=== PATIENT | male | born 1985 | race African-American/Black ===

== ENCOUNTER 2021-10-30 10:17 | Inpatient (IN) | payer OTHER ==
[2021-10-30 10:45] VITALS: BMI 26.9
[2021-10-30] MEDS ORDERED: NALOXONE HCL (KLOXXADO) 8 MG SPRAY NS PRN (11:06)
[2021-10-30] MEDS ORDERED: BISMUTH SUBSALICYLATE 262 MG/15 ML BTL PO PRN (11:06)
[2021-10-30] MEDS ORDERED: BENZOCAINE/MENTHOL (CHLORASEPTIC ) LOZENGE MM PRN (11:06)
[2021-10-30] MEDS ORDERED: IBUPROFEN 400 MG TABLET (FP) PO PRN (11:06)
[2021-10-30] MEDS ORDERED: DICYCLOMINE HCL 10 MG CAPSULE PO PRN (11:06)
[2021-10-30] MEDS ORDERED: ACETAMINOPHEN 325 MG TABLET (FP) PO PRN ×2 (11:06)
[2021-10-30] MEDS ORDERED: MAG HYDROX/AL HYDROX/SIMETH 30 ML UNIT-DOSE CUP PO PRN (11:06)
[2021-10-30] MEDS ORDERED: MAGNESIUM HYDROX 2400MG/30ML ORAL SUSPENSION 30 ML CUP PO PRN (11:06)
[2021-10-30] MEDS ORDERED: chlordiazePOXIDE HCL 25 MG CAPSULE PO PRN (11:06)
[2021-10-30] MEDS ORDERED: ONDANSETRON *ODT* 4 MG TABLET SL PRN (11:06)
[2021-10-30] MEDS ORDERED: LOPERAMIDE HCL 2 MG CAPSULE PO PRN (11:06)
[2021-10-30] MEDS ORDERED: MAGNESIUM CITRATE 300 ML BOTTLE PO PRN (11:06)
[2021-10-30] MEDS: PRENATAL VITAMINS W/ FOLIC ACID TABLET (FP) PO SCH (12:15)
[2021-10-30] MEDS: METHOCARBAMOL 500 MG TABLET PO PRN (12:15)
[2021-10-30] MEDS: hydrOXYzine PAMOATE 25 MG CAPSULE (FP) PO SCH ×3 (13:19→22:17)
[2021-10-30] MEDS: chlordiazePOXIDE HCL 25 MG CAPSULE PO SCH ×2 (17:27→22:17)
[2021-10-30] MEDS: THIAMINE HCL 100 MG TABLET (FP) PO SCH (22:17)
[2021-10-30] MEDS: MELATONIN 5 MG TABLETS PO SCH (22:17)
[2021-10-31] MEDS: hydrOXYzine PAMOATE 25 MG CAPSULE (FP) PO SCH ×5 (06:12→22:33)
[2021-10-31] MEDS: chlordiazePOXIDE HCL 25 MG CAPSULE PO SCH ×4 (06:12→22:33)
[2021-10-31 10:25] LABS: HEMATOCRIT 43.7 % (35.4-49); HEMOGLOBIN 14.5 GM/dL (11.7-16.9); MCH 29.7 pg (25.7-33.7); MCHC 33.2 g/dl (32.0-35.9); MEAN CELL VOLUME 89.6 fl (80-96); MEAN PLT VOLUME 9.9 fl (7.5-11.1); PLATELET COUNT 194 10^3/uL (134-434); RBC 4.87 M/mm3 (4.00-5.60); RDW 13.2 % (11.9-15.9); WHITE BLOOD COUNT 6.2 K/mm3 (4.0-10.0)
[2021-10-31] MEDS: PRENATAL VITAMINS W/ FOLIC ACID TABLET (FP) PO SCH (10:34)
[2021-10-31] MEDS: MELATONIN 5 MG TABLETS PO SCH (22:33)
[2021-10-31] MEDS: THIAMINE HCL 100 MG TABLET (FP) PO SCH (22:33)
[2021-11-01] MEDS: chlordiazePOXIDE HCL 25 MG CAPSULE PO SCH ×4 (05:28→22:08)
[2021-11-01] MEDS: hydrOXYzine PAMOATE 25 MG CAPSULE (FP) PO SCH ×5 (05:28→22:08)
[2021-11-01] MEDS: NICOTINE 10 MG CARTRIDGE (INHALER) IH PRN ×2 (11:41→20:16)
[2021-11-01] MEDS: PRENATAL VITAMINS W/ FOLIC ACID TABLET (FP) PO SCH (11:44)
[2021-11-01] MEDS: METHOCARBAMOL 500 MG TABLET PO PRN (22:08)
[2021-11-01] MEDS: THIAMINE HCL 100 MG TABLET (FP) PO SCH (22:08)
[2021-11-01] MEDS: MELATONIN 5 MG TABLETS PO SCH (22:08)
[2021-11-02] MEDS ORDERED: chlordiazePOXIDE HCL 10 MG CAPSULE PO PRN
[2021-11-02] MEDS: hydrOXYzine PAMOATE 25 MG CAPSULE (FP) PO SCH ×3 (05:32→13:17)
[2021-11-02] MEDS: chlordiazePOXIDE HCL 10 MG CAPSULE PO SCH ×2 (05:33→10:48)
[2021-11-02 09:31] VITALS: BP 118/68; PULSE 72; TEMP 96.9
[2021-11-02 09:39] LABS: ALBUMIN 4.4 g/dl (3.4-5.0); CALCIUM 9.3 mg/dL (8.5-10.1)
[2021-11-02 09:42] LABS: CREATININE 0.8 mg/dL (0.55-1.3)
[2021-11-02 09:44] LABS: BILIRUBIN,TOTAL 1.2 mg/dL (0.2-1); TOT PROT 7.5 g/dl (6.4-8.2)
[2021-11-02] MEDS: METHOCARBAMOL 500 MG TABLET PO PRN (10:48)
[2021-11-02] MEDS: PRENATAL VITAMINS W/ FOLIC ACID TABLET (FP) PO SCH (10:48)
[2021-11-03] MEDS ORDERED: chlordiazePOXIDE HCL 10 MG CAPSULE PO SCH (05:00)
[2021-11-04] MEDS ORDERED: chlordiazePOXIDE HCL 10 MG CAPSULE PO ONE (05:00)
== END 2021-11-02 13:30 | disposition left against medical advice (07) | DRG 770 ==
LOC: YASAS 10:17 → Y6N 11:39
PROVIDERS: ADMIT Allergy & Immunology; ATTEND Surgery
PROC: HZ2ZZZZ Detoxification Services for Substance Abuse Treatment (ICD-10-PCS; principal; 2021-10-30)
DX: F10.230 Alcohol dependence with withdrawal, uncomplicated (principal); F12.20 Cannabis dependence, uncomplicated; F17.210 Nicotine dependence, cigarettes, uncomplicated; F33.2 Major depressive disorder, recurrent severe without psychotic features; F10.24 Alcohol dependence with alcohol-induced mood disorder; I10 Essential (primary) hypertension
CPT/HCPCS: 36415; 80053; 85027; 86780; 87811; 93005; 93010; C9803-CS; Q0162; U0003; U0005

== ENCOUNTER 2023-05-22 10:18 | Inpatient (IN) | payer OTHER ==
[2023-05-22 11:06] VITALS: BMI 28.0
[2023-05-22] MEDS ORDERED: NALOXONE HCL (KLOXXADO) 8 MG SPRAY NS PRN (11:49)
[2023-05-22] MEDS ORDERED: LOPERAMIDE HCL 2 MG CAPSULE PO PRN (11:49)
[2023-05-22] MEDS ORDERED: NALOXONE HCL 0.4 MG/ML VIAL IM PRN (11:49)
[2023-05-22] MEDS ORDERED: IBUPROFEN 600 MG TABLET (FP) PO PRN (11:49)
[2023-05-22] MEDS ORDERED: ACETAMINOPHEN 325 MG TABLET (FP) PO PRN (11:49)
[2023-05-22] MEDS ORDERED: BISMUTH SUBSALICYLATE 262 MG/15 ML BTL PO PRN (11:49)
[2023-05-22] MEDS ORDERED: IBUPROFEN 400 MG TABLET (FP) PO PRN (11:49)
[2023-05-22] MEDS ORDERED: POLYETHYLENE GLYCOL (HEALTHYLAX) 3350 17 GM PACKET PO PRN (11:49)
[2023-05-22] MEDS ORDERED: DICYCLOMINE HCL 10 MG CAPSULE PO PRN (11:49)
[2023-05-22] MEDS ORDERED: BENZONATATE 200 MG CAPSULE PO PRN (11:49)
[2023-05-22] MEDS ORDERED: MAGNESIUM HYDROX 2400MG/30ML ORAL SUSPENSION 30 ML CUP PO PRN (11:49)
[2023-05-22] MEDS ORDERED: guaiFENesin 600 MG TABLET.ER (FP) PO PRN (11:49)
[2023-05-22] MEDS ORDERED: BENZOCAINE/MENTHOL (CHLORASEPTIC ) LOZENGE MM PRN (11:49)
[2023-05-22] MEDS ORDERED: MAG HYDROX/AL HYDROX/SIMETH 30 ML UNIT-DOSE CUP PO PRN (11:49)
[2023-05-22] MEDS ORDERED: ONDANSETRON *ODT* 4 MG TABLET SL PRN (11:49)
[2023-05-22] MEDS ORDERED: LORazepam 2 MG TABLET ONE (12:35)
[2023-05-22] MEDS ORDERED: NICOTINE 14 MG/24 HOURS TOPICAL PATCH TD ONE (12:36)
[2023-05-22] MEDS ORDERED: PRENATAL VITAMINS W/ FOLIC ACID TABLET (FP) PO ONE (12:36)
[2023-05-22] MEDS: LORazepam 2 MG TABLET PO SCH (12:43)
[2023-05-22] MEDS: PRENATAL VITAMINS W/ FOLIC ACID TABLET (FP) PO SCH (12:45)
[2023-05-22] MEDS: NICOTINE 14 MG/24 HOURS TOPICAL PATCH TD SCH (12:45)
[2023-05-22] MEDS: NICOTINE POLACRILEX 2 MG GUM BUC PRN (17:02)
[2023-05-22] MEDS: MELATONIN 5 MG TABLETS PO SCH (22:08)
[2023-05-22] MEDS: THIAMINE HCL 100 MG TABLET (FP) PO SCH (22:08)
[2023-05-23] MEDS ORDERED: LITHIUM CARBONATE 150 MG CAPSULE PO SCH (10:54)
[2023-05-23] MEDS: LITHIUM CARBONATE 300 MG CAPSULE PO SCH (10:55)
[2023-05-23] MEDS: LITHIUM CARBONATE 150 MG CAPSULE PO SCH (11:44)
[2023-05-23] MEDS: NICOTINE 14 MG/24 HOURS TOPICAL PATCH TD SCH (11:45)
[2023-05-23 12:48] LABS: CHLORIDE 104 mmol/L (98-107); POTASSIUM 3.8 mmol/L (3.5-5.1); SODIUM 139 mmol/L (136-145)
[2023-05-23 12:58] LABS: HEMATOCRIT 40.2 % (35.4-49); HEMOGLOBIN 13.3 GM/dL (11.7-16.9); MCH 29.6 pg (25.7-33.7); MCHC 33.1 g/dl (32.0-35.9); MEAN CELL VOLUME 89.5 fl (80-96); MEAN PLT VOLUME 9.5 fl (7.5-11.1); PLATELET COUNT 194 10^3/uL (134-434); RBC 4.48 M/mm3 (4.00-5.60); RDW 13.9 % (11.9-15.9); WHITE BLOOD COUNT 8.1 K/mm3 (4.0-10.0)
[2023-05-23 12:59] LABS: CALCIUM 8.5 mg/dL (8.5-10.1)
[2023-05-23 13:00] LABS: ALBUMIN 3.3 g/dl (3.4-5.0); ANION GAP 7 mmol/L (4-13); BLOOD UREA NITROGEN 10.8 mg/dL (7-18); CO2 29 mmol/L (21-32); GLUCOSE,RANDOM 95 mg/dL (74-106)
[2023-05-23 13:02] LABS: CREATININE 0.9 mg/dL (0.55-1.3); SGPT/ALT 67 U/L (13-61)
[2023-05-23 13:03] LABS: SGOT/AST 37 U/L (15-37)
[2023-05-23 13:04] LABS: BILIRUBIN,TOTAL 0.7 mg/dL (0.2-1); TOT PROT 6.1 g/dl (6.4-8.2)
[2023-05-23 13:05] LABS: ALK PHOS 37 U/L (45-117)
[2023-05-23] MEDS: LORazepam 1 MG TABLET PO PRN (15:47)
[2023-05-23] MEDS: hydrOXYzine PAMOATE 25 MG CAPSULE (FP) PO PRN (17:30)
[2023-05-23] MEDS: traZODone HCL 50 MG TABLET (FP) PO SCH (22:01)
[2023-05-23] MEDS: METHOCARBAMOL 500 MG TABLET PO PRN (22:02)
[2023-05-24] MEDS: LORazepam 1 MG TABLET PO SCH (05:51)
[2023-05-24] MEDS: LACTULOSE 20 GM/30 ML UDC (FOR ORAL USE ONLY) PO SCH (13:10)
[2023-05-25] MEDS ORDERED: LORazepam 0.5 MG TABLET PO PRN
[2023-05-25] MEDS: LORazepam 0.5 MG TABLET PO SCH (05:26)
[2023-05-25] MEDS: OLANZapine 5 MG TABLET PO SCH (22:30)
[2023-05-26] MEDS: LORazepam 0.5 MG TABLET PO ONE (05:32)
[2023-05-26] MEDS ORDERED: FLUoxetine HCL 20 MG CAPSULE PO SCH (10:00)
[2023-05-26] MEDS: P-EPHED 60MG/TRIPROLIDI 2.5MG TABLET PO PRN (10:08)
[2023-05-26 13:23] VITALS: BP 152/98; PULSE 98; RESP 20; TEMP 97.7
== END 2023-05-26 15:49 | disposition other institution (70) | DRG 775 ==
LOC: YASAS 10:18 → Y3N 12:25
PROVIDERS: ADMIT Allergy & Immunology; ATTEND Surgery
PROC: HZ2ZZZZ Detoxification Services for Substance Abuse Treatment (ICD-10-PCS; principal; 2023-05-22)
DX: F10.230 Alcohol dependence with withdrawal, uncomplicated (principal); F17.210 Nicotine dependence, cigarettes, uncomplicated; F33.2 Major depressive disorder, recurrent severe without psychotic features; F19.282 Other psychoactive substance dependence with psychoactive substance-induced sleep disorder; F19.280 Other psychoactive substance dependence with psychoactive substance-induced anxiety disorder; F19.24 Other psychoactive substance dependence with psychoactive substance-induced mood disorder; F39 Unspecified mood [affective] disorder; F41.9 Anxiety disorder, unspecified; F90.9 Attention-deficit hyperactivity disorder, unspecified type; R79.89 Other specified abnormal findings of blood chemistry; R09.81 Nasal congestion
CPT/HCPCS: 36415; 80053; 80178; 80307; 82140; 85027; 86780; 87635; 87811; 93005; 93010

== ENCOUNTER 2023-05-26 17:06 | Inpatient (IN) | payer OTHER ==
[2023-05-26] MEDS ORDERED: BENZOCAINE/MENTHOL (CHLORASEPTIC ) LOZENGE MM PRN (17:24)
[2023-05-26] MEDS ORDERED: ACETAMINOPHEN 325 MG TABLET (FP) PO PRN (17:24)
[2023-05-26] MEDS ORDERED: BENZONATATE 200 MG CAPSULE PO PRN (17:24)
[2023-05-26] MEDS ORDERED: COLLOIDAL OATMEAL 1 BAR EACH TP PRN (17:24)
[2023-05-26] MEDS ORDERED: guaiFENesin 600 MG TABLET.ER (FP) PO PRN (17:24)
[2023-05-26] MEDS ORDERED: LOPERAMIDE HCL 2 MG CAPSULE PO PRN (17:24)
[2023-05-26] MEDS: THIAMINE HCL 100 MG TABLET (FP) PO SCH (21:40)
[2023-05-26] MEDS: MELATONIN 5 MG TABLETS PO SCH (21:40)
[2023-05-26] MEDS: METHOCARBAMOL 500 MG TABLET PO PRN (21:41)
[2023-05-26] MEDS ORDERED: traZODone HCL 50 MG TABLET (FP) PO ONE (22:00)
[2023-05-26] MEDS ORDERED: OLANZapine 5 MG TABLET PO ONE (22:00)
[2023-05-27] MEDS ORDERED: LITHIUM CARBONATE 150 MG CAPSULE PO SCH (10:00)
[2023-05-27] MEDS: PRENATAL VITAMINS W/ FOLIC ACID TABLET (FP) PO SCH (10:26)
[2023-05-27] MEDS: NICOTINE POLACRILEX 2 MG GUM BUC PRN ×2 (11:40→16:49)
[2023-05-27] MEDS ORDERED: hydrOXYzine PAMOATE 25 MG CAPSULE (FP) PO ONE (16:40)
[2023-05-27] MEDS: traZODone HCL 100 MG TABLET (FP) PO SCH (21:08)
[2023-05-27] MEDS: MELATONIN 5 MG TABLETS PO SCH (21:08)
[2023-05-27] MEDS: OLANZapine 10 MG TABLET PO SCH (21:08)
[2023-05-27] MEDS: THIAMINE HCL 100 MG TABLET (FP) PO SCH (21:08)
[2023-05-27] MEDS: GABAPENTIN 100 MG CAPSULE PO SCH (21:09)
[2023-05-27] MEDS: METHOCARBAMOL 500 MG TABLET PO PRN (21:10)
[2023-05-27] MEDS ORDERED: OLANZapine 5 MG TABLET PO SCH (22:00)
[2023-05-27] MEDS ORDERED: traZODone HCL 50 MG TABLET (FP) PO SCH (22:00)
[2023-05-28] MEDS: GABAPENTIN 100 MG CAPSULE PO SCH ×3 (06:41→21:18)
[2023-05-28] MEDS: P-EPHED 60MG/TRIPROLIDI 2.5MG TABLET PO PRN ×2 (07:52→13:35)
[2023-05-28] MEDS: PRENATAL VITAMINS W/ FOLIC ACID TABLET (FP) PO SCH (09:57)
[2023-05-28] MEDS: FLUoxetine HCL 20 MG CAPSULE PO SCH (09:57)
[2023-05-28] MEDS: NICOTINE POLACRILEX 2 MG GUM BUC PRN (09:57)
[2023-05-28] MEDS ORDERED: NICOTINE POLACRILEX 2 MG GUM BUC PRN (12:04)
[2023-05-28] MEDS: MELATONIN 5 MG TABLETS PO SCH (21:17)
[2023-05-28] MEDS: THIAMINE HCL 100 MG TABLET (FP) PO SCH (21:17)
[2023-05-28] MEDS: METHOCARBAMOL 500 MG TABLET PO PRN (21:18)
[2023-05-28] MEDS: traZODone HCL 100 MG TABLET (FP) PO SCH (21:18)
[2023-05-28] MEDS: OLANZapine 10 MG TABLET PO SCH (21:18)
[2023-05-29] MEDS: GABAPENTIN 100 MG CAPSULE PO SCH ×3 (06:19→21:04)
[2023-05-29] MEDS: P-EPHED 60MG/TRIPROLIDI 2.5MG TABLET PO PRN ×2 (06:58→16:32)
[2023-05-29] MEDS: FLUoxetine HCL 20 MG CAPSULE PO SCH (09:50)
[2023-05-29] MEDS: NICOTINE 14 MG/24 HOURS TOPICAL PATCH TD SCH (09:50)
[2023-05-29] MEDS: PRENATAL VITAMINS W/ FOLIC ACID TABLET (FP) PO SCH (09:50)
[2023-05-29] MEDS: MAGNESIUM HYDROX 2400MG/30ML ORAL SUSPENSION 30 ML CUP PO PRN (13:50)
[2023-05-29] MEDS: traZODone HCL 100 MG TABLET (FP) PO SCH (21:04)
[2023-05-29] MEDS: THIAMINE HCL 100 MG TABLET (FP) PO SCH (21:04)
[2023-05-29] MEDS: OLANZapine 10 MG TABLET PO SCH (21:04)
[2023-05-29] MEDS: MELATONIN 5 MG TABLETS PO SCH (21:04)
[2023-05-30] MEDS: P-EPHED 60MG/TRIPROLIDI 2.5MG TABLET PO PRN ×2 (06:09→16:24)
[2023-05-30] MEDS: GABAPENTIN 100 MG CAPSULE PO SCH ×3 (06:09→21:30)
[2023-05-30] MEDS: IBUPROFEN 600 MG TABLET (FP) PO PRN (06:09)
[2023-05-30] MEDS: METHOCARBAMOL 500 MG TABLET PO PRN ×2 (06:10→21:30)
[2023-05-30] MEDS: PRENATAL VITAMINS W/ FOLIC ACID TABLET (FP) PO SCH (10:09)
[2023-05-30] MEDS: FLUoxetine HCL 20 MG CAPSULE PO SCH (10:09)
[2023-05-30] MEDS: NICOTINE 14 MG/24 HOURS TOPICAL PATCH TD SCH (10:09)
[2023-05-30] MEDS: MAGNESIUM HYDROX 2400MG/30ML ORAL SUSPENSION 30 ML CUP PO PRN (11:23)
[2023-05-30] MEDS: MELATONIN 5 MG TABLETS PO SCH (21:29)
[2023-05-30] MEDS: traZODone HCL 100 MG TABLET (FP) PO SCH (21:29)
[2023-05-30] MEDS: THIAMINE HCL 100 MG TABLET (FP) PO SCH (21:29)
[2023-05-30] MEDS: OLANZapine 10 MG TABLET PO SCH (21:30)
[2023-05-31] MEDS: P-EPHED 60MG/TRIPROLIDI 2.5MG TABLET PO PRN ×2 (06:08→10:20)
[2023-05-31] MEDS: GABAPENTIN 100 MG CAPSULE PO SCH ×3 (06:08→21:02)
[2023-05-31] MEDS: PRENATAL VITAMINS W/ FOLIC ACID TABLET (FP) PO SCH (10:19)
[2023-05-31] MEDS: FLUoxetine HCL 20 MG CAPSULE PO SCH (10:19)
[2023-05-31] MEDS: NICOTINE 14 MG/24 HOURS TOPICAL PATCH TD SCH (10:19)
[2023-05-31] MEDS: POLYETHYLENE GLYCOL (HEALTHYLAX) 3350 17 GM PACKET PO PRN (11:00)
[2023-05-31] MEDS: MAGNESIUM HYDROX 2400MG/30ML ORAL SUSPENSION 30 ML CUP PO PRN (16:36)
[2023-05-31] MEDS: traZODone HCL 100 MG TABLET (FP) PO SCH (21:02)
[2023-05-31] MEDS: OLANZapine 10 MG TABLET PO SCH (21:02)
[2023-05-31] MEDS: THIAMINE HCL 100 MG TABLET (FP) PO SCH (21:02)
[2023-05-31] MEDS: METHOCARBAMOL 500 MG TABLET PO PRN (21:02)
[2023-05-31] MEDS: MELATONIN 5 MG TABLETS PO SCH (21:03)
[2023-06-01] MEDS: GABAPENTIN 100 MG CAPSULE PO SCH ×3 (06:03→21:13)
[2023-06-01] MEDS: P-EPHED 60MG/TRIPROLIDI 2.5MG TABLET PO PRN ×3 (06:04→16:29)
[2023-06-01] MEDS: PRENATAL VITAMINS W/ FOLIC ACID TABLET (FP) PO SCH (09:40)
[2023-06-01] MEDS: FLUoxetine HCL 20 MG CAPSULE PO SCH (09:40)
[2023-06-01] MEDS: NICOTINE 14 MG/24 HOURS TOPICAL PATCH TD SCH (09:42)
[2023-06-01] MEDS: MAGNESIUM HYDROX 2400MG/30ML ORAL SUSPENSION 30 ML CUP PO PRN (09:42)
[2023-06-01] MEDS: POLYETHYLENE GLYCOL (HEALTHYLAX) 3350 17 GM PACKET PO PRN (16:29)
[2023-06-01] MEDS: MELATONIN 5 MG TABLETS PO SCH (21:12)
[2023-06-01] MEDS: THIAMINE HCL 100 MG TABLET (FP) PO SCH (21:12)
[2023-06-01] MEDS: traZODone HCL 100 MG TABLET (FP) PO SCH (21:13)
[2023-06-01] MEDS: OLANZapine 10 MG TABLET PO SCH (21:13)
[2023-06-02] MEDS: GABAPENTIN 100 MG CAPSULE PO SCH ×3 (06:10→21:13)
[2023-06-02] MEDS: P-EPHED 60MG/TRIPROLIDI 2.5MG TABLET PO PRN ×3 (06:11→16:13)
[2023-06-02] MEDS: NICOTINE 14 MG/24 HOURS TOPICAL PATCH TD SCH (10:01)
[2023-06-02] MEDS: FLUoxetine HCL 20 MG CAPSULE PO SCH (10:01)
[2023-06-02] MEDS: PRENATAL VITAMINS W/ FOLIC ACID TABLET (FP) PO SCH (10:01)
[2023-06-02] MEDS: LACTULOSE 20 GM/30 ML UDC (FOR ORAL USE ONLY) PO SCH ×2 (13:42→21:13)
[2023-06-02] MEDS: MELATONIN 5 MG TABLETS PO SCH (21:13)
[2023-06-02] MEDS: OLANZapine 10 MG TABLET PO SCH (21:13)
[2023-06-02] MEDS: traZODone HCL 100 MG TABLET (FP) PO SCH (21:13)
[2023-06-02] MEDS: THIAMINE HCL 100 MG TABLET (FP) PO SCH (21:13)
[2023-06-03] MEDS: LACTULOSE 20 GM/30 ML UDC (FOR ORAL USE ONLY) PO SCH ×3 (05:59→21:13)
[2023-06-03] MEDS: GABAPENTIN 100 MG CAPSULE PO SCH ×3 (06:00→21:13)
[2023-06-03] MEDS: P-EPHED 60MG/TRIPROLIDI 2.5MG TABLET PO PRN ×2 (06:00→14:19)
[2023-06-03] MEDS: NICOTINE 14 MG/24 HOURS TOPICAL PATCH TD SCH (09:31)
[2023-06-03] MEDS: PRENATAL VITAMINS W/ FOLIC ACID TABLET (FP) PO SCH (09:31)
[2023-06-03] MEDS: FLUoxetine HCL 20 MG CAPSULE PO SCH (09:31)
[2023-06-03 10:52] LABS: INR 0.96 (0.83-1.09); PROTHROMBIN TIME (PATIENT) 11.1 SEC (9.7-13.0)
[2023-06-03] MEDS: traZODone HCL 100 MG TABLET (FP) PO SCH (21:13)
[2023-06-03] MEDS: THIAMINE HCL 100 MG TABLET (FP) PO SCH (21:13)
[2023-06-03] MEDS: OLANZapine 10 MG TABLET PO SCH (21:13)
[2023-06-03] MEDS: MELATONIN 5 MG TABLETS PO SCH (21:13)
[2023-06-04] MEDS: LACTULOSE 20 GM/30 ML UDC (FOR ORAL USE ONLY) PO SCH ×3 (05:50→21:07)
[2023-06-04] MEDS: P-EPHED 60MG/TRIPROLIDI 2.5MG TABLET PO PRN (05:51)
[2023-06-04] MEDS: GABAPENTIN 100 MG CAPSULE PO SCH ×3 (05:51→21:08)
[2023-06-04] MEDS: PRENATAL VITAMINS W/ FOLIC ACID TABLET (FP) PO SCH (09:59)
[2023-06-04] MEDS: NICOTINE 14 MG/24 HOURS TOPICAL PATCH TD SCH (09:59)
[2023-06-04] MEDS: FLUoxetine HCL 20 MG CAPSULE PO SCH (09:59)
[2023-06-04] MEDS: amLODIPine BESYLATE 2.5 MG TABLET (FP) PO SCH (13:23)
[2023-06-04] MEDS: THIAMINE HCL 100 MG TABLET (FP) PO SCH (21:08)
[2023-06-04] MEDS: MELATONIN 5 MG TABLETS PO SCH (21:08)
[2023-06-04] MEDS: OLANZapine 10 MG TABLET PO SCH (21:08)
[2023-06-04] MEDS: traZODone HCL 100 MG TABLET (FP) PO SCH (21:08)
[2023-06-05] MEDS: P-EPHED 60MG/TRIPROLIDI 2.5MG TABLET PO PRN (06:28)
[2023-06-05] MEDS: GABAPENTIN 100 MG CAPSULE PO SCH ×3 (06:28→21:35)
[2023-06-05] MEDS: LACTULOSE 20 GM/30 ML UDC (FOR ORAL USE ONLY) PO SCH ×3 (06:28→21:35)
[2023-06-05] MEDS: FLUoxetine HCL 20 MG CAPSULE PO SCH (09:30)
[2023-06-05] MEDS: amLODIPine BESYLATE 2.5 MG TABLET (FP) PO SCH (09:30)
[2023-06-05] MEDS: NICOTINE 14 MG/24 HOURS TOPICAL PATCH TD SCH (09:31)
[2023-06-05] MEDS: PRENATAL VITAMINS W/ FOLIC ACID TABLET (FP) PO SCH (09:31)
[2023-06-05] MEDS: THIAMINE HCL 100 MG TABLET (FP) PO SCH (21:35)
[2023-06-05] MEDS: OLANZapine 10 MG TABLET PO SCH (21:35)
[2023-06-05] MEDS: MELATONIN 5 MG TABLETS PO SCH (21:35)
[2023-06-05] MEDS: traZODone HCL 100 MG TABLET (FP) PO SCH (21:35)
[2023-06-06] MEDS: LACTULOSE 20 GM/30 ML UDC (FOR ORAL USE ONLY) PO SCH ×3 (06:04→21:09)
[2023-06-06] MEDS: GABAPENTIN 100 MG CAPSULE PO SCH ×3 (06:05→21:09)
[2023-06-06] MEDS: P-EPHED 60MG/TRIPROLIDI 2.5MG TABLET PO PRN ×2 (06:07→16:41)
[2023-06-06] MEDS: PRENATAL VITAMINS W/ FOLIC ACID TABLET (FP) PO SCH (10:03)
[2023-06-06] MEDS: amLODIPine BESYLATE 2.5 MG TABLET (FP) PO SCH (10:07)
[2023-06-06] MEDS: FLUoxetine HCL 20 MG CAPSULE PO SCH (10:07)
[2023-06-06] MEDS: NICOTINE 14 MG/24 HOURS TOPICAL PATCH TD SCH (10:08)
[2023-06-06] MEDS ORDERED: amLODIPine BESYLATE 5 MG TABLET (FP) PO SCH (11:52)
[2023-06-06] MEDS: IBUPROFEN 600 MG TABLET (FP) PO PRN (16:39)
[2023-06-06] MEDS: MELATONIN 5 MG TABLETS PO SCH (21:09)
[2023-06-06] MEDS: traZODone HCL 100 MG TABLET (FP) PO SCH (21:10)
[2023-06-06] MEDS: THIAMINE HCL 100 MG TABLET (FP) PO SCH (21:10)
[2023-06-06] MEDS: OLANZapine 10 MG TABLET PO SCH (21:10)
[2023-06-07] MEDS: P-EPHED 60MG/TRIPROLIDI 2.5MG TABLET PO PRN (06:25)
[2023-06-07] MEDS: GABAPENTIN 100 MG CAPSULE PO SCH ×3 (06:25→21:21)
[2023-06-07] MEDS: LACTULOSE 20 GM/30 ML UDC (FOR ORAL USE ONLY) PO SCH ×3 (06:25→21:21)
[2023-06-07] MEDS: PRENATAL VITAMINS W/ FOLIC ACID TABLET (FP) PO SCH (09:39)
[2023-06-07] MEDS: FLUoxetine HCL 20 MG CAPSULE PO SCH (09:39)
[2023-06-07] MEDS: NICOTINE 14 MG/24 HOURS TOPICAL PATCH TD SCH (09:41)
[2023-06-07] MEDS: MAG HYDROX/AL HYDROX/SIMETH 30 ML UNIT-DOSE CUP PO PRN ×2 (10:42→17:04)
[2023-06-07] MEDS: IBUPROFEN 600 MG TABLET (FP) PO PRN (14:04)
[2023-06-07] MEDS: MELATONIN 5 MG TABLETS PO SCH (21:21)
[2023-06-07] MEDS: THIAMINE HCL 100 MG TABLET (FP) PO SCH (21:21)
[2023-06-07] MEDS: traZODone HCL 100 MG TABLET (FP) PO SCH (21:21)
[2023-06-07] MEDS: OLANZapine 10 MG TABLET PO SCH (21:21)
[2023-06-08] MEDS: LACTULOSE 20 GM/30 ML UDC (FOR ORAL USE ONLY) PO SCH ×3 (06:02→21:07)
[2023-06-08] MEDS: P-EPHED 60MG/TRIPROLIDI 2.5MG TABLET PO PRN (06:02)
[2023-06-08] MEDS: GABAPENTIN 100 MG CAPSULE PO SCH ×3 (06:03→21:07)
[2023-06-08] MEDS: MAG HYDROX/AL HYDROX/SIMETH 30 ML UNIT-DOSE CUP PO PRN (06:48)
[2023-06-08] MEDS: NICOTINE 14 MG/24 HOURS TOPICAL PATCH TD SCH (10:00)
[2023-06-08] MEDS ORDERED: amLODIPine BESYLATE 5 MG TABLET (FP) PO SCH (10:00)
[2023-06-08] MEDS: PRENATAL VITAMINS W/ FOLIC ACID TABLET (FP) PO SCH (10:00)
[2023-06-08] MEDS: FLUoxetine HCL 20 MG CAPSULE PO SCH (10:01)
[2023-06-08] MEDS: SODIUM CHLORIDE NASAL SPRAY 44 ML BOTTLE NS PRN (10:37)
[2023-06-08] MEDS: FAMOTIDINE 20 MG TABLET PO SCH (10:37)
[2023-06-08] MEDS: IBUPROFEN 600 MG TABLET (FP) PO PRN (16:33)
[2023-06-08] MEDS: THIAMINE HCL 100 MG TABLET (FP) PO SCH (21:07)
[2023-06-08] MEDS: traZODone HCL 100 MG TABLET (FP) PO SCH (21:07)
[2023-06-08] MEDS: OLANZapine 10 MG TABLET PO SCH (21:07)
[2023-06-08] MEDS: MELATONIN 5 MG TABLETS PO SCH (21:07)
[2023-06-09] MEDS: P-EPHED 60MG/TRIPROLIDI 2.5MG TABLET PO PRN ×2 (06:08→14:43)
[2023-06-09] MEDS: LACTULOSE 20 GM/30 ML UDC (FOR ORAL USE ONLY) PO SCH ×3 (06:08→21:20)
[2023-06-09] MEDS: GABAPENTIN 100 MG CAPSULE PO SCH ×3 (06:08→21:20)
[2023-06-09] MEDS: SODIUM CHLORIDE NASAL SPRAY 44 ML BOTTLE NS PRN ×2 (06:10→14:43)
[2023-06-09] MEDS: FAMOTIDINE 20 MG TABLET PO SCH (09:39)
[2023-06-09] MEDS: amLODIPine BESYLATE 10 MG TABLET (FP) PO SCH (09:39)
[2023-06-09] MEDS: NICOTINE 14 MG/24 HOURS TOPICAL PATCH TD SCH (09:39)
[2023-06-09] MEDS: PRENATAL VITAMINS W/ FOLIC ACID TABLET (FP) PO SCH (09:39)
[2023-06-09] MEDS: FLUoxetine HCL 20 MG CAPSULE PO SCH (09:39)
[2023-06-09] MEDS: IBUPROFEN 600 MG TABLET (FP) PO PRN (12:49)
[2023-06-09] MEDS: THIAMINE HCL 100 MG TABLET (FP) PO SCH (21:20)
[2023-06-09] MEDS: OLANZapine 10 MG TABLET PO SCH (21:20)
[2023-06-09] MEDS: MELATONIN 5 MG TABLETS PO SCH (21:20)
[2023-06-09] MEDS: traZODone HCL 100 MG TABLET (FP) PO SCH (21:20)
[2023-06-10] MEDS: LACTULOSE 20 GM/30 ML UDC (FOR ORAL USE ONLY) PO SCH (05:59)
[2023-06-10] MEDS: SODIUM CHLORIDE NASAL SPRAY 44 ML BOTTLE NS PRN ×2 (05:59→16:27)
[2023-06-10] MEDS: GABAPENTIN 100 MG CAPSULE PO SCH ×3 (05:59→21:05)
[2023-06-10] MEDS: P-EPHED 60MG/TRIPROLIDI 2.5MG TABLET PO PRN (05:59)
[2023-06-10] MEDS: FAMOTIDINE 20 MG TABLET PO SCH (10:08)
[2023-06-10] MEDS: amLODIPine BESYLATE 10 MG TABLET (FP) PO SCH (10:08)
[2023-06-10] MEDS: PRENATAL VITAMINS W/ FOLIC ACID TABLET (FP) PO SCH (10:08)
[2023-06-10] MEDS: NICOTINE 14 MG/24 HOURS TOPICAL PATCH TD SCH (10:08)
[2023-06-10] MEDS: FLUoxetine HCL 20 MG CAPSULE PO SCH (10:08)
[2023-06-10] MEDS: IBUPROFEN 600 MG TABLET (FP) PO PRN (16:26)
[2023-06-10] MEDS: MELATONIN 5 MG TABLETS PO SCH (21:05)
[2023-06-10] MEDS: THIAMINE HCL 100 MG TABLET (FP) PO SCH (21:05)
[2023-06-10] MEDS: OLANZapine 10 MG TABLET PO SCH (21:05)
[2023-06-10] MEDS: traZODone HCL 100 MG TABLET (FP) PO SCH (21:05)
[2023-06-11] MEDS: GABAPENTIN 100 MG CAPSULE PO SCH ×3 (06:04→21:24)
[2023-06-11] MEDS: SODIUM CHLORIDE NASAL SPRAY 44 ML BOTTLE NS PRN (06:04)
[2023-06-11] MEDS: P-EPHED 60MG/TRIPROLIDI 2.5MG TABLET PO PRN ×2 (06:04→16:29)
[2023-06-11] MEDS: FLUoxetine HCL 20 MG CAPSULE PO SCH (09:48)
[2023-06-11] MEDS: amLODIPine BESYLATE 10 MG TABLET (FP) PO SCH (09:48)
[2023-06-11] MEDS: PRENATAL VITAMINS W/ FOLIC ACID TABLET (FP) PO SCH (09:48)
[2023-06-11] MEDS: FAMOTIDINE 20 MG TABLET PO SCH (09:48)
[2023-06-11] MEDS: NICOTINE 14 MG/24 HOURS TOPICAL PATCH TD SCH (09:48)
[2023-06-11] MEDS: IBUPROFEN 400 MG TABLET (FP) PO PRN (14:15)
[2023-06-11] MEDS: OLANZapine 10 MG TABLET PO SCH (21:24)
[2023-06-11] MEDS: traZODone HCL 100 MG TABLET (FP) PO SCH (21:24)
[2023-06-11] MEDS: MELATONIN 5 MG TABLETS PO SCH (21:24)
[2023-06-11] MEDS: THIAMINE HCL 100 MG TABLET (FP) PO SCH (21:24)
[2023-06-12] MEDS: GABAPENTIN 100 MG CAPSULE PO SCH ×3 (06:08→21:10)
[2023-06-12] MEDS: P-EPHED 60MG/TRIPROLIDI 2.5MG TABLET PO PRN (06:09)
[2023-06-12] MEDS: SODIUM CHLORIDE NASAL SPRAY 44 ML BOTTLE NS PRN ×2 (06:10→21:10)
[2023-06-12] MEDS: FLUoxetine HCL 20 MG CAPSULE PO SCH (10:12)
[2023-06-12] MEDS: PRENATAL VITAMINS W/ FOLIC ACID TABLET (FP) PO SCH (10:12)
[2023-06-12] MEDS: amLODIPine BESYLATE 10 MG TABLET (FP) PO SCH (10:12)
[2023-06-12] MEDS: NICOTINE 14 MG/24 HOURS TOPICAL PATCH TD SCH (10:12)
[2023-06-12] MEDS: FAMOTIDINE 20 MG TABLET PO SCH (10:12)
[2023-06-12] MEDS: IBUPROFEN 600 MG TABLET (FP) PO PRN (14:38)
[2023-06-12] MEDS: traZODone HCL 100 MG TABLET (FP) PO SCH (21:10)
[2023-06-12] MEDS: THIAMINE HCL 100 MG TABLET (FP) PO SCH (21:10)
[2023-06-12] MEDS: MELATONIN 5 MG TABLETS PO SCH (21:10)
[2023-06-12] MEDS: OLANZapine 10 MG TABLET PO SCH (21:11)
[2023-06-13] MEDS: diphenhydrAMINE HCL 25 MG CAPSULE (FP) PO PRN (03:51)
[2023-06-13] MEDS: GABAPENTIN 100 MG CAPSULE PO SCH ×3 (05:49→21:29)
[2023-06-13] MEDS: SODIUM CHLORIDE NASAL SPRAY 44 ML BOTTLE NS PRN ×3 (06:19→21:29)
[2023-06-13] MEDS: P-EPHED 60MG/TRIPROLIDI 2.5MG TABLET PO PRN ×2 (06:20→16:39)
[2023-06-13] MEDS: PRENATAL VITAMINS W/ FOLIC ACID TABLET (FP) PO SCH (10:06)
[2023-06-13] MEDS: FLUoxetine HCL 20 MG CAPSULE PO SCH (10:07)
[2023-06-13] MEDS: FAMOTIDINE 20 MG TABLET PO SCH (10:07)
[2023-06-13] MEDS: amLODIPine BESYLATE 10 MG TABLET (FP) PO SCH (10:07)
[2023-06-13] MEDS: NICOTINE 14 MG/24 HOURS TOPICAL PATCH TD SCH (10:07)
[2023-06-13] MEDS: IBUPROFEN 600 MG TABLET (FP) PO PRN (12:15)
[2023-06-13] MEDS: traZODone HCL 100 MG TABLET (FP) PO SCH (21:29)
[2023-06-13] MEDS: OLANZapine 10 MG TABLET PO SCH (21:29)
[2023-06-13] MEDS: MELATONIN 5 MG TABLETS PO SCH (21:29)
[2023-06-13] MEDS: THIAMINE HCL 100 MG TABLET (FP) PO SCH (21:29)
[2023-06-14] MEDS: SODIUM CHLORIDE NASAL SPRAY 44 ML BOTTLE NS PRN ×2 (06:00→16:29)
[2023-06-14] MEDS: P-EPHED 60MG/TRIPROLIDI 2.5MG TABLET PO PRN ×2 (06:01→16:28)
[2023-06-14] MEDS: GABAPENTIN 100 MG CAPSULE PO SCH ×3 (06:01→21:15)
[2023-06-14] MEDS: PRENATAL VITAMINS W/ FOLIC ACID TABLET (FP) PO SCH (09:31)
[2023-06-14] MEDS: FAMOTIDINE 20 MG TABLET PO SCH (09:32)
[2023-06-14] MEDS: amLODIPine BESYLATE 10 MG TABLET (FP) PO SCH (09:32)
[2023-06-14] MEDS: NICOTINE 14 MG/24 HOURS TOPICAL PATCH TD SCH (09:32)
[2023-06-14] MEDS: FLUoxetine HCL 20 MG CAPSULE PO SCH (09:32)
[2023-06-14] MEDS: traZODone HCL 100 MG TABLET (FP) PO SCH (21:15)
[2023-06-14] MEDS: OLANZapine 10 MG TABLET PO SCH (21:15)
[2023-06-14] MEDS: MELATONIN 5 MG TABLETS PO SCH (21:15)
[2023-06-14] MEDS: THIAMINE HCL 100 MG TABLET (FP) PO SCH (21:15)
[2023-06-15] MEDS: GABAPENTIN 100 MG CAPSULE PO SCH ×3 (06:29→21:27)
[2023-06-15] MEDS: P-EPHED 60MG/TRIPROLIDI 2.5MG TABLET PO PRN (06:30)
[2023-06-15] MEDS: SODIUM CHLORIDE NASAL SPRAY 44 ML BOTTLE NS PRN ×2 (06:52→16:22)
[2023-06-15] MEDS: amLODIPine BESYLATE 10 MG TABLET (FP) PO SCH (09:49)
[2023-06-15] MEDS: FAMOTIDINE 20 MG TABLET PO SCH (09:49)
[2023-06-15] MEDS: FLUoxetine HCL 20 MG CAPSULE PO SCH (09:49)
[2023-06-15] MEDS: NICOTINE 14 MG/24 HOURS TOPICAL PATCH TD SCH (09:49)
[2023-06-15] MEDS: PRENATAL VITAMINS W/ FOLIC ACID TABLET (FP) PO SCH (09:49)
[2023-06-15] MEDS: IBUPROFEN 400 MG TABLET (FP) PO PRN (16:24)
[2023-06-15] MEDS: traZODone HCL 100 MG TABLET (FP) PO SCH (21:27)
[2023-06-15] MEDS: MELATONIN 5 MG TABLETS PO SCH (21:27)
[2023-06-15] MEDS: THIAMINE HCL 100 MG TABLET (FP) PO SCH (21:27)
[2023-06-15] MEDS: OLANZapine 10 MG TABLET PO SCH (21:27)
[2023-06-16] MEDS: P-EPHED 60MG/TRIPROLIDI 2.5MG TABLET PO PRN (06:17)
[2023-06-16] MEDS: SODIUM CHLORIDE NASAL SPRAY 44 ML BOTTLE NS PRN (06:17)
[2023-06-16] MEDS: GABAPENTIN 100 MG CAPSULE PO SCH ×3 (06:17→21:06)
[2023-06-16] MEDS: FLUoxetine HCL 20 MG CAPSULE PO SCH (10:06)
[2023-06-16] MEDS: amLODIPine BESYLATE 10 MG TABLET (FP) PO SCH (10:06)
[2023-06-16] MEDS: FAMOTIDINE 20 MG TABLET PO SCH (10:06)
[2023-06-16] MEDS: NICOTINE 14 MG/24 HOURS TOPICAL PATCH TD SCH (10:06)
[2023-06-16] MEDS: PRENATAL VITAMINS W/ FOLIC ACID TABLET (FP) PO SCH (10:07)
[2023-06-16] MEDS: IBUPROFEN 400 MG TABLET (FP) PO PRN (14:36)
[2023-06-16] MEDS: MELATONIN 5 MG TABLETS PO SCH (21:06)
[2023-06-16] MEDS: METHOCARBAMOL 500 MG TABLET PO PRN (21:06)
[2023-06-16] MEDS: OLANZapine 10 MG TABLET PO SCH (21:06)
[2023-06-16] MEDS: traZODone HCL 100 MG TABLET (FP) PO SCH (21:06)
[2023-06-16] MEDS: THIAMINE HCL 100 MG TABLET (FP) PO SCH (21:06)
[2023-06-17] MEDS: GABAPENTIN 100 MG CAPSULE PO SCH (06:02)
[2023-06-17] MEDS: diphenhydrAMINE HCL 25 MG CAPSULE (FP) PO PRN (06:03)
[2023-06-17] MEDS: SODIUM CHLORIDE NASAL SPRAY 44 ML BOTTLE NS PRN ×2 (06:04→11:36)
[2023-06-17] MEDS: P-EPHED 60MG/TRIPROLIDI 2.5MG TABLET PO PRN (08:41)
[2023-06-17] MEDS: FLUoxetine HCL 20 MG CAPSULE PO SCH (09:45)
[2023-06-17] MEDS: NICOTINE 14 MG/24 HOURS TOPICAL PATCH TD SCH (09:45)
[2023-06-17] MEDS: FAMOTIDINE 20 MG TABLET PO SCH (09:45)
[2023-06-17] MEDS: PRENATAL VITAMINS W/ FOLIC ACID TABLET (FP) PO SCH (09:45)
[2023-06-17] MEDS: amLODIPine BESYLATE 10 MG TABLET (FP) PO SCH (09:45)
[2023-06-17] MEDS: GABAPENTIN 300 MG CAPSULE PO SCH ×2 (13:08→21:02)
[2023-06-17] MEDS: OLANZapine 10 MG TABLET PO SCH (21:02)
[2023-06-17] MEDS: traZODone HCL 100 MG TABLET (FP) PO SCH (21:02)
[2023-06-17] MEDS: MELATONIN 5 MG TABLETS PO SCH (21:02)
[2023-06-17] MEDS: THIAMINE HCL 100 MG TABLET (FP) PO SCH (21:02)
[2023-06-17] MEDS: METHOCARBAMOL 500 MG TABLET PO PRN (21:02)
[2023-06-18] MEDS: P-EPHED 60MG/TRIPROLIDI 2.5MG TABLET PO PRN ×2 (06:33→16:18)
[2023-06-18] MEDS: SODIUM CHLORIDE NASAL SPRAY 44 ML BOTTLE NS PRN ×2 (06:33→10:09)
[2023-06-18] MEDS: GABAPENTIN 300 MG CAPSULE PO SCH ×3 (06:34→21:24)
[2023-06-18] MEDS: FAMOTIDINE 20 MG TABLET PO SCH (10:07)
[2023-06-18] MEDS: FLUoxetine HCL 20 MG CAPSULE PO SCH (10:07)
[2023-06-18] MEDS: PRENATAL VITAMINS W/ FOLIC ACID TABLET (FP) PO SCH (10:07)
[2023-06-18] MEDS: amLODIPine BESYLATE 10 MG TABLET (FP) PO SCH (10:07)
[2023-06-18] MEDS: NICOTINE 14 MG/24 HOURS TOPICAL PATCH TD SCH (10:08)
[2023-06-18] MEDS: NICOTINE POLACRILEX 2 MG GUM BUC PRN (15:35)
[2023-06-18] MEDS: MELATONIN 5 MG TABLETS PO SCH (21:24)
[2023-06-18] MEDS: OLANZapine 10 MG TABLET PO SCH (21:24)
[2023-06-18] MEDS: THIAMINE HCL 100 MG TABLET (FP) PO SCH (21:24)
[2023-06-18] MEDS: METHOCARBAMOL 500 MG TABLET PO PRN (21:24)
[2023-06-18] MEDS: traZODone HCL 100 MG TABLET (FP) PO SCH (21:24)
[2023-06-19] MEDS: SODIUM CHLORIDE NASAL SPRAY 44 ML BOTTLE NS PRN (05:52)
[2023-06-19] MEDS: P-EPHED 60MG/TRIPROLIDI 2.5MG TABLET PO PRN ×2 (05:52→15:14)
[2023-06-19] MEDS: GABAPENTIN 300 MG CAPSULE PO SCH ×3 (05:52→21:37)
[2023-06-19] MEDS: IBUPROFEN 600 MG TABLET (FP) PO PRN (08:48)
[2023-06-19] MEDS: NICOTINE 14 MG/24 HOURS TOPICAL PATCH TD SCH (09:56)
[2023-06-19] MEDS: FAMOTIDINE 20 MG TABLET PO SCH (09:56)
[2023-06-19] MEDS: FLUoxetine HCL 20 MG CAPSULE PO SCH (09:56)
[2023-06-19] MEDS: amLODIPine BESYLATE 10 MG TABLET (FP) PO SCH (09:56)
[2023-06-19] MEDS: PRENATAL VITAMINS W/ FOLIC ACID TABLET (FP) PO SCH (09:56)
[2023-06-19] MEDS: traZODone HCL 100 MG TABLET (FP) PO SCH (21:37)
[2023-06-19] MEDS: OLANZapine 10 MG TABLET PO SCH (21:37)
[2023-06-19] MEDS: MELATONIN 5 MG TABLETS PO SCH (21:37)
[2023-06-19] MEDS: METHOCARBAMOL 500 MG TABLET PO PRN (21:37)
[2023-06-19] MEDS: THIAMINE HCL 100 MG TABLET (FP) PO SCH (21:37)
[2023-06-20] MEDS: GABAPENTIN 300 MG CAPSULE PO SCH ×3 (06:27→21:15)
[2023-06-20] MEDS: P-EPHED 60MG/TRIPROLIDI 2.5MG TABLET PO PRN ×2 (06:28→13:41)
[2023-06-20] MEDS: SODIUM CHLORIDE NASAL SPRAY 44 ML BOTTLE NS PRN ×2 (06:29→13:41)
[2023-06-20] MEDS: NICOTINE 14 MG/24 HOURS TOPICAL PATCH TD SCH (10:21)
[2023-06-20] MEDS: PRENATAL VITAMINS W/ FOLIC ACID TABLET (FP) PO SCH (10:21)
[2023-06-20] MEDS: amLODIPine BESYLATE 10 MG TABLET (FP) PO SCH (10:21)
[2023-06-20] MEDS: FAMOTIDINE 20 MG TABLET PO SCH (10:21)
[2023-06-20] MEDS: FLUoxetine HCL 20 MG CAPSULE PO SCH (10:21)
[2023-06-20] MEDS: traZODone HCL 100 MG TABLET (FP) PO SCH (21:15)
[2023-06-20] MEDS: OLANZapine 10 MG TABLET PO SCH (21:15)
[2023-06-20] MEDS: THIAMINE HCL 100 MG TABLET (FP) PO SCH (21:16)
[2023-06-20] MEDS: MELATONIN 5 MG TABLETS PO SCH (21:16)
[2023-06-21] MEDS: GABAPENTIN 300 MG CAPSULE PO SCH ×3 (06:24→21:27)
[2023-06-21] MEDS: P-EPHED 60MG/TRIPROLIDI 2.5MG TABLET PO PRN ×2 (06:24→13:19)
[2023-06-21] MEDS: SODIUM CHLORIDE NASAL SPRAY 44 ML BOTTLE NS PRN (06:25)
[2023-06-21] MEDS: IBUPROFEN 400 MG TABLET (FP) PO PRN (08:53)
[2023-06-21] MEDS: FAMOTIDINE 20 MG TABLET PO SCH (09:52)
[2023-06-21] MEDS: PRENATAL VITAMINS W/ FOLIC ACID TABLET (FP) PO SCH (09:52)
[2023-06-21] MEDS: FLUoxetine HCL 20 MG CAPSULE PO SCH (09:52)
[2023-06-21] MEDS: amLODIPine BESYLATE 10 MG TABLET (FP) PO SCH (09:52)
[2023-06-21] MEDS: NICOTINE 14 MG/24 HOURS TOPICAL PATCH TD SCH (09:52)
[2023-06-21] MEDS: OLANZapine 10 MG TABLET PO SCH (21:27)
[2023-06-21] MEDS: traZODone HCL 100 MG TABLET (FP) PO SCH (21:27)
[2023-06-21] MEDS: MELATONIN 5 MG TABLETS PO SCH (21:27)
[2023-06-21] MEDS: THIAMINE HCL 100 MG TABLET (FP) PO SCH (21:27)
[2023-06-22] MEDS: GABAPENTIN 300 MG CAPSULE PO SCH (06:00)
[2023-06-22] MEDS: P-EPHED 60MG/TRIPROLIDI 2.5MG TABLET PO PRN (06:00)
[2023-06-22] MEDS: SODIUM CHLORIDE NASAL SPRAY 44 ML BOTTLE NS PRN (06:05)
[2023-06-22 07:50] VITALS: TEMP 97.3
[2023-06-22 08:51] VITALS: BP 138/80; PULSE 91; RESP 18
[2023-06-22] MEDS: FAMOTIDINE 20 MG TABLET PO SCH (09:14)
[2023-06-22] MEDS: NICOTINE 14 MG/24 HOURS TOPICAL PATCH TD SCH (09:14)
[2023-06-22] MEDS: FLUoxetine HCL 20 MG CAPSULE PO SCH (09:14)
[2023-06-22] MEDS: amLODIPine BESYLATE 10 MG TABLET (FP) PO SCH (09:14)
[2023-06-22] MEDS: PRENATAL VITAMINS W/ FOLIC ACID TABLET (FP) PO SCH (09:14)
== END 2023-06-22 09:19 | disposition home or self-care (01) | DRG 772 ==
LOC: YASAS 17:06 → Y3W 17:09
PROVIDERS: ADMIT Allergy & Immunology; ATTEND Psychiatry & Neurology Pain Medicine
PROC: HZ42ZZZ Group Counseling for Substance Abuse Treatment, Cognitive-Behavioral (ICD-10-PCS; principal; 2023-05-26)
DX: F10.20 Alcohol dependence, uncomplicated (principal); F17.210 Nicotine dependence, cigarettes, uncomplicated; F19.280 Other psychoactive substance dependence with psychoactive substance-induced anxiety disorder; F19.282 Other psychoactive substance dependence with psychoactive substance-induced sleep disorder; F31.9 Bipolar disorder, unspecified; F41.9 Anxiety disorder, unspecified; E72.20 Disorder of urea cycle metabolism, unspecified; I10 Essential (primary) hypertension; K21.9 Gastro-esophageal reflux disease without esophagitis
CPT/HCPCS: 0241U-QW; 36415; 82140; 85610; 87635; 87811